=== PATIENT | female | born 1975 | race African-American/Black ===

== ENCOUNTER 2018-12-23 11:11 | Emergency (ER) | payer OTHER ==
[~2018-12-23] VITALS: Ht 170.2 cm; Wt 78.0 kg
[2018-12-23 11:18] VITALS: BP 143/99
== END 2018-12-23 17:05 | disposition left against medical advice (07) ==
LOC: ER 12:27
DX: R05 Cough (principal); R06.02 Shortness of breath; Z53.21 Procedure and treatment not carried out due to patient leaving prior to being seen by health care provider
CPT/HCPCS: 93005

== ENCOUNTER 2019-02-05 00:24 | Inpatient (IN) | payer MEDICAID, OTHER ==
[2019-02-05] VITALS (40 sets, daily range): BP systolic 117–134; BP diastolic 76–98
[~2019-02-05] VITALS: Ht 167.6 cm; Wt 81.2 kg
[2019-02-05] MEDS ORDERED: MORPHINE SULFATE 4 MG/ML CPJ (NOT FOR IM USE) IV STA (00:28)
[2019-02-05] MEDS ORDERED: ONDANSETRON HCL 4MG/2ML INJ IV STA (00:28)
[2019-02-05] MEDS ORDERED: ETOMIDATE 2MG/ML 10ML VIAL IV ONE (00:30)
[2019-02-05] MEDS ORDERED: VANCOMYCIN 1 G PREMIX 200 ML IV ONE (00:30)
[2019-02-05] MEDS ORDERED: MEROPENEM 1,000 MG in SODIUM CHLORIDE 0.9% 100 ML IV ONE (00:30)
[2019-02-05] MEDS ORDERED: PROPOFOL 10MG/ML 100ML 100 ML IV ONE ×2 (00:30→00:51)
[2019-02-05] MEDS ORDERED: SUCCINYLCHOLINE CHLORIDE 200MG/10ML IV ONE (00:30)
[2019-02-05] MEDS ORDERED: ONDANSETRON HCL 4MG/2ML INJ ONE (00:36)
[2019-02-05] MEDS ORDERED: SODIUM CHLORIDE 0.9% 1000ML BAG (SEPSIS BOLUS) IV ONE (00:45)
[2019-02-05 01:08] LABS: BG BASE EXCESS -4.2 mmol/L (-2.0-2.0); BG CARBOXYHEMOGLOBIN 0.2 % (0.5-1.5); BG DEOXYHEMOGLOBIN 5.5 % (0.0-5.0); BG FRACTION INSPIRED OXYGEN 60; BG HCO3 ACT 22.1 mmol/L (22.0-26.0); BG METHEMOGLOBIN 0.4 % (0.0-1.5); BG OXYGEN SATURATION 94.5 % (92.0-98.5); BG OXYHEMOGLOBIN 93.9 % (94.0-97.0); BG PCO2 45.2 mmHg (35.0-45.0); BG PH 7.307 (7.350-7.450); BG PO2 85.6 mmHg (75.0-100.0); BG SAMPLE SITE RIGHT BRACHIAL; BG TIDAL VOLUME(mL) 500 mL; BG VENT MODE VENT - A/C; BG VENT RATE 14 set
[2019-02-05 01:17] LABS: BASOPHILS % 0.3 % (0.0-2.0); EOSINOPHILS % 0.3 % (0.0-5.0); HEMATOCRIT. 36.4 % (36.0-48.0); HEMOGLOBIN. 11.9 g/dL (12.0-16.0); LYMPHOCYTES % 20.9 % (20.0-50.0); MEAN CORPUSCULAR HEMOGLOBIN 28.8 pg (28.0-32.0); MEAN CORPUSCULAR VOLUME 88.2 fL (81.0-99.0); MEAN PLATELET VOLUME 8.5 fl (7.4-10.4); MONOCYTES % 5.3 % (2.0-8.0); NEUTROPHILS % 73.2 % (40.0-76.0); PLATELET 325 x1000/uL (130-400); RED BLOOD CELL COUNT 4.13 mill/uL (4.2-5.4); RED CELL DISTRIBUTION WIDTH 13.7 % (11.6-14.6)
[2019-02-05 01:21] LABS: PROTHROMBIN TIME 10.3 sec (9.1-11.1)
[2019-02-05 01:26] LABS: CHLORIDE 111 mEq/L (98-107)
[2019-02-05] MEDS ORDERED: MIDAZOLAM HCL 50 MG in DEXTROSE 5% WATER 40 ML IV ONE (02:00)
[2019-02-05] MEDS ORDERED: MIDAZOLAM HCL 2 MG/2 ML VIAL IV ONE (02:00)
[2019-02-05 02:26] LABS: CLARITY URINE CLOUDY (CLEAR); COLOR URINE YELLOW (YELLOW); KETONES URINE TRACE (NEGATIVE); LEUKOCYTE ESTERASE URINE NEGATIVE (NEGATIVE); NITRITE URINE NEGATIVE (NEGATIVE); OCCULT BLOOD URINE NEGATIVE (NEGATIVE); PROTEIN URINE 2+ (NEGATIVE); SPECIFIC GRAVITY URINE 1.017 (1.005-1.030)
[2019-02-05] MEDS ORDERED: LEVOFLOXACIN 750MG PREMIX 150 ML IV ONE (02:30)
[2019-02-05 02:37] LABS: *BARBITURATES SCREEN URINE NEGATIVE (NEGATIVE); *BENZODIAZEPINES SCREEN URINE NEGATIVE (NEGATIVE); *COCAINE SCREEN URINE NEGATIVE (NEGATIVE)
[2019-02-05 02:38] LABS: CANNABINOID URINE SCREEN NEGATIVE (NEGATIVE); METHADONE URINE SCREEN NEGATIVE (NEGATIVE); PHENCYCLIDINE URINE SCREEN NEGATIVE (NEGATIVE)
[2019-02-05] MEDS ORDERED: FENTANYL CITRATE/PF 500 MCG in SODIUM CHLORIDE 0.9% 40 ML IV STA (02:53)
[2019-02-05] MEDS: MIDAZOLAM HCL 50 MG in DEXTROSE 5% WATER 40 ML IV PRN ×2 (02:59→04:41)
[2019-02-05] MEDS ORDERED: FENTANYL CITRATE/PF 500 MCG in SODIUM CHLORIDE 0.9% 40 ML IV PRN ×2 (03:00→11:00)
[2019-02-05 03:45] LABS: *AMPHETAMINES SCREEN URINE PRESUMTIVE POSITIVE (NEGATIVE); OPIATES URINE SCREEN PRESUMTIVE POSITIVE (NEGATIVE)
[2019-02-05] MEDS ORDERED: DEXT 5%/0.45% NACL 1000ML 1,000 ML IV SCH (08:05)
[2019-02-05] MEDS ORDERED: IPRATROPIUM/ALBUTEROL 0.5-3(2.5)MG/3ML NEB INH PRN (08:15)
[2019-02-05] MEDS ORDERED: ONDANSETRON HCL 4MG/2ML INJ IV PRN (08:15)
[2019-02-05] MEDS ORDERED: MAGNESIUM/ALUMINUM HYDROXIDE/SIMETHICONE 30ML UDC PO PRN (08:15)
[2019-02-05] MEDS ORDERED: CLONIDINE 0.1MG TABLET PO PRN (08:15)
[2019-02-05] MEDS ORDERED: DOCUSATE SODIUM 100MG CAPSULE PO PRN (08:15)
[2019-02-05] MEDS ORDERED: HYDRALAZINE 20MG/ML VIAL IV PRN (08:15)
[2019-02-05] MEDS ORDERED: DIPHENHYDRAMINE 50MG/ML VIAL IV PRN (08:15)
[2019-02-05] MEDS ORDERED: NOREPINEPHRINE 32 MG in DEXT 5% WATER 468 ML IV PRN ×2 (11:00→11:45)
[2019-02-05] MEDS: IPRATROPIUM/ALBUTEROL 0.5-3(2.5)MG/3ML NEB HHN SCH ×3 (11:45→20:56)
[2019-02-05] MEDS: PROPOFOL 10MG/ML 100ML 100 ML IV PRN ×2 (11:50→19:52)
[2019-02-05] MEDS: DEXT 5%/0.45% NACL 1000ML 1,000 ML IV SCH (11:51)
[2019-02-05] MEDS: ASPIRIN 81MG EC TABLET PO SCH (12:05)
[2019-02-05] MEDS: PANTOPRAZOLE SODIUM 40 MG/VIAL IV SCH (12:05)
[2019-02-05] MEDS: ENOXAPARIN 40MG/0.4ML SYR SUBCUT SCH (12:09)
[2019-02-05] MEDS ORDERED: LIDOCAINE HCL 1% 20ML VIAL (Pyxis) INJ ONE (12:53)
[2019-02-05] MEDS: VANCOMYCIN 750 MG PREMIX 150 ML IV SCH (13:32)
[2019-02-05] MEDS: METRONIDAZOLE 500 MG PREMIX 100 ML IV SCH ×2 (13:32→21:55)
[2019-02-05] MEDS: SODIUM CHLORIDE 0.9% INJ 3ML FLUSH IVF SCH ×2 (14:00→21:55)
[2019-02-05] MEDS: FENTANYL CITRATE/PF 500 MCG in SODIUM CHLORIDE 0.9% 40 ML IV PRN (16:50)
[2019-02-05 18:33] LABS: CREATINE KINASE MB FRACTION 3.2 ng/mL (0.5-3.6)
[2019-02-05 18:41] LABS: HCG SCREEN NEGATIVE
[2019-02-05 19:01] LABS: HEPATITIS B SURFACE ANTIGEN NEGATIVE
[2019-02-05 19:31] LABS: HEPATITIS A AB IGM NEGATIVE (NEGATIVE)
[2019-02-06] VITALS (62 sets, daily range): BP systolic 114–142; BP diastolic 35–100
[2019-02-06] MEDS: IPRATROPIUM/ALBUTEROL 0.5-3(2.5)MG/3ML NEB HHN SCH ×7 (00:15→23:41)
[2019-02-06] MEDS: PROPOFOL 10MG/ML 100ML 100 ML IV PRN ×2 (00:41→05:21)
[2019-02-06] MEDS: VANCOMYCIN 750 MG PREMIX 150 ML IV SCH ×2 (01:43→12:44)
[2019-02-06 02:00] LABS: CREATINE KINASE MB FRACTION 2.5 ng/mL (0.5-3.6)
[2019-02-06] MEDS: DEXT 5%/0.45% NACL 1000ML 1,000 ML IV SCH ×2 (03:06→18:03)
[2019-02-06] MEDS: FENTANYL CITRATE/PF 500 MCG in SODIUM CHLORIDE 0.9% 40 ML IV PRN (03:13)
[2019-02-06] MEDS ORDERED: LEVOFLOXACIN 500MG PREMIX 100 ML IV SCH (04:00)
[2019-02-06 06:16] LABS: BASOPHILS % 0.5 % (0.0-2.0); EOSINOPHILS % 3.6 % (0.0-5.0); HEMATOCRIT. 30.3 % (36.0-48.0); HEMOGLOBIN. 10.1 g/dL (12.0-16.0); LYMPHOCYTES % 31.1 % (20.0-50.0); MEAN CORPUSCULAR HEMOGLOBIN 29.3 pg (28.0-32.0); MEAN CORPUSCULAR VOLUME 87.7 fL (81.0-99.0); MEAN PLATELET VOLUME 8.7 fl (7.4-10.4); MONOCYTES % 9.1 % (2.0-8.0); NEUTROPHILS % 55.7 % (40.0-76.0); PLATELET 211 x1000/uL (130-400); RED BLOOD CELL COUNT 3.46 mill/uL (4.2-5.4); RED CELL DISTRIBUTION WIDTH 13.8 % (11.6-14.6)
[2019-02-06 06:21] LABS: CHLORIDE 114 mEq/L (98-107)
[2019-02-06 06:31] LABS: LDL CHOLESTEROL 66 mg/dL (5-100)
[2019-02-06 06:32] LABS: HDL CHOLESTEROL 48 mg/dL (40-59)
[2019-02-06 06:33] LABS: T4 FREE 1.19 ng/dL (0.76-1.46)
[2019-02-06 08:41] LABS: BG BASE EXCESS -1.1 mmol/L (-2.0-2.0); BG DEOXYHEMOGLOBIN 2.9 % (0.0-5.0); BG FRACTION INSPIRED OXYGEN 50; BG HCO3 ACT 23.1 mmol/L (22.0-26.0); BG METHEMOGLOBIN 1.2 % (0.0-1.5); BG OXYGEN SATURATION 97.1 % (92.0-98.5); BG OXYHEMOGLOBIN 95.9 % (94.0-97.0); BG PCO2 36.7 mmHg (35.0-45.0); BG PH 7.416 (7.350-7.450); BG PO2 101.3 mmHg (75.0-100.0); BG SAMPLE SITE RIGHT BRACHIAL; BG TOTAL HEMOGLOBIN 11.5 g/dL (12.0-18.0); BG VENT MODE MASK - VENTI
[2019-02-06] MEDS: ASPIRIN 81MG EC TABLET PO SCH (09:00)
[2019-02-06] MEDS: PANTOPRAZOLE SODIUM 40 MG/VIAL IV SCH (09:11)
[2019-02-06] MEDS: ENOXAPARIN 40MG/0.4ML SYR SUBCUT SCH (12:45)
[2019-02-06] MEDS: LORAZEPAM 2MG/ML CPJ IV PRN ×3 (12:45→23:46)
[2019-02-06] MEDS: SODIUM CHLORIDE 0.9% INJ 3ML FLUSH IVF SCH ×2 (14:00→21:52)
[2019-02-06] MEDS: METRONIDAZOLE 500 MG PREMIX 100 ML IV SCH ×2 (18:04→21:37)
[2019-02-06] MEDS: ACETAMINOPHEN 325MG TABLET PO PRN (20:01)
[2019-02-06] MEDS: VANCOMYCIN 1 G PREMIX 200 ML IV SCH (21:45)
[2019-02-07] VITALS (26 sets, daily range): BP systolic 111–150; BP diastolic 64–97
[2019-02-07] MEDS: HYDROMORPHONE HCL/PF 2MG/ML CPJ IV PRN ×3 (01:21→20:14)
[2019-02-07] MEDS: LEVOFLOXACIN 500MG PREMIX 100 ML IV SCH (02:08)
[2019-02-07] MEDS: IPRATROPIUM/ALBUTEROL 0.5-3(2.5)MG/3ML NEB HHN SCH ×5 (04:17→20:41)
[2019-02-07] MEDS: SODIUM CHLORIDE 0.9% INJ 3ML FLUSH IVF SCH ×3 (05:43→21:53)
[2019-02-07] MEDS: METRONIDAZOLE 500 MG PREMIX 100 ML IV SCH ×3 (06:15→21:31)
[2019-02-07 08:10] LABS: HEMATOCRIT 29.2 % (36.0-48.0); HEMOGLOBIN 9.7 g/dL (12.0-16.0); MEAN CORPUSCULAR HEMOGLOBIN 29.1 pg (28.0-32.0); MEAN CORPUSCULAR VOLUME 87.9 fL (81.0-99.0); PLATELET 201 x1000/uL (130-400); RED BLOOD CELL COUNT 3.33 mill/uL (4.2-5.4); RED CELL DISTRIBUTION WIDTH 13.5 % (11.6-14.6)
[2019-02-07 08:13] LABS: CHLORIDE 113 mEq/L (98-107)
[2019-02-07] MEDS ORDERED: POTASSIUM CHLORIDE 20MEQ TABLET SR PO SCH (09:15)
[2019-02-07] MEDS: PANTOPRAZOLE SODIUM 40 MG/VIAL IV SCH (09:25)
[2019-02-07] MEDS: VANCOMYCIN 1 G PREMIX 200 ML IV SCH ×3 (09:25→23:59)
[2019-02-07] MEDS: DEXT 5%/0.45% NACL 1000ML 1,000 ML IV SCH (09:25)
[2019-02-07] MEDS: ASPIRIN 81MG EC TABLET PO SCH (12:10)
[2019-02-07] MEDS: ENOXAPARIN 40MG/0.4ML SYR SUBCUT SCH (12:11)
[2019-02-07] MEDS ORDERED: POTASSIUM CHLORIDE 20MEQ/PACKET PO SCH (12:15)
[2019-02-07] MEDS ORDERED: THROAT LOZENGES-BENZOCAINE/MENTH/CETYLPYRD CL LOZENGES MM PRN (12:15)
[2019-02-07 13:06] LABS: HIV SCREEN 4G Non Reactive (Non Reactive)
[2019-02-07] MEDS ORDERED: MAGNESIUM 2 G PREMIX 50 ML IV SCH (15:00)
[2019-02-08] VITALS: BP 123/71
[2019-02-08] MEDS: IPRATROPIUM/ALBUTEROL 0.5-3(2.5)MG/3ML NEB HHN SCH ×6 (00:21→20:16)
[2019-02-08] MEDS: ACETAMINOPHEN 325MG TABLET PO PRN (01:15)
[2019-02-08] MEDS: LEVOFLOXACIN 500MG PREMIX 100 ML IV SCH (03:19)
[2019-02-08] MEDS: HYDROMORPHONE HCL/PF 2MG/ML CPJ IV PRN ×2 (03:29→15:21)
[2019-02-08 04:00] VITALS: BP 113/66
[2019-02-08] MEDS: METRONIDAZOLE 500 MG PREMIX 100 ML IV SCH ×3 (05:33→22:02)
[2019-02-08] MEDS: SODIUM CHLORIDE 0.9% INJ 3ML FLUSH IVF SCH ×3 (05:33→22:02)
[2019-02-08] MEDS: VANCOMYCIN 1 G PREMIX 200 ML IV SCH ×3 (06:31→23:33)
[2019-02-08 06:37] LABS: BASOPHILS % 0.3 % (0.0-2.0); EOSINOPHILS % 3.6 % (0.0-5.0); HEMATOCRIT. 30.1 % (36.0-48.0); HEMOGLOBIN. 9.9 g/dL (12.0-16.0); LYMPHOCYTES % 19.4 % (20.0-50.0); MEAN PLATELET VOLUME 8.5 fl (7.4-10.4); MONOCYTES % 10.5 % (2.0-8.0); NEUTROPHILS % 66.2 % (40.0-76.0); PLATELET 223 x1000/uL (130-400); RED BLOOD CELL COUNT 3.42 mill/uL (4.2-5.4); RED CELL DISTRIBUTION WIDTH 13.7 % (11.6-14.6)
[2019-02-08 07:09] LABS: CHLORIDE 111 mEq/L (98-107)
[2019-02-08 07:20] LABS: VANCOMYCIN TROUGH 22.7 ug/mL (5.0-10.0)
[2019-02-08 08:00] VITALS: BP 119/82
[2019-02-08] MEDS: PANTOPRAZOLE SODIUM 40 MG/VIAL IV SCH (08:32)
[2019-02-08] MEDS: ASPIRIN 81MG EC TABLET PO SCH (08:32)
[2019-02-08 12:06] VITALS: BP 121/86
[2019-02-08] MEDS: ENOXAPARIN 40MG/0.4ML SYR SUBCUT SCH (13:14)
[2019-02-08 16:21] VITALS: BP 121/79
[2019-02-08] MEDS: LORAZEPAM 2MG/ML CPJ IV PRN (19:46)
[2019-02-08 20:00] VITALS: BP 117/87
[2019-02-09] VITALS (7 sets, daily range): BP systolic 120–142; BP diastolic 65–102
[2019-02-09] MEDS: IPRATROPIUM/ALBUTEROL 0.5-3(2.5)MG/3ML NEB HHN SCH ×6 (01:41→23:58)
[2019-02-09] MEDS: LEVOFLOXACIN 500MG PREMIX 100 ML IV SCH (02:26)
[2019-02-09] MEDS: LORAZEPAM 2MG/ML CPJ IV PRN ×5 (02:28→23:31)
[2019-02-09] MEDS: SODIUM CHLORIDE 0.9% INJ 3ML FLUSH IVF SCH ×3 (05:35→22:01)
[2019-02-09] MEDS: METRONIDAZOLE 500 MG PREMIX 100 ML IV SCH ×3 (05:35→21:05)
[2019-02-09] MEDS: VANCOMYCIN 1 G PREMIX 200 ML IV SCH ×3 (06:48→22:02)
[2019-02-09 09:23] LABS: CHLORIDE 112 mEq/L (98-107)
[2019-02-09] MEDS: FAMOTIDINE 20MG/2ML VIAL IV SCH ×2 (09:39→21:05)
[2019-02-09] MEDS: ASPIRIN 81MG EC TABLET PO SCH (09:39)
[2019-02-09] MEDS: DEXT 5%/0.45% NACL 1000ML 1,000 ML IV SCH ×3 (09:40→22:10)
[2019-02-09] MEDS: ENOXAPARIN 40MG/0.4ML SYR SUBCUT SCH (11:51)
[2019-02-09] MEDS: HYDROCODONE/ACETAMINOPHEN 10/325MG TABLET PO PRN ×2 (13:33→17:47)
[2019-02-10] VITALS (7 sets, daily range): BP systolic 119–144; BP diastolic 61–96
[2019-02-10] MEDS: LEVOFLOXACIN 500MG PREMIX 100 ML IV SCH (01:25)
[2019-02-10] MEDS: GUAIFENESIN 200MG/10ML SUGAR FREE UDC PO PRN ×4 (02:04→20:11)
[2019-02-10] MEDS: HYDROCODONE/ACETAMINOPHEN 10/325MG TABLET PO PRN ×3 (02:47→20:11)
[2019-02-10] MEDS: IPRATROPIUM/ALBUTEROL 0.5-3(2.5)MG/3ML NEB HHN SCH ×5 (03:51→21:46)
[2019-02-10] MEDS: SODIUM CHLORIDE 0.9% INJ 3ML FLUSH IVF SCH ×3 (05:21→21:58)
[2019-02-10] MEDS: METRONIDAZOLE 500 MG PREMIX 100 ML IV SCH ×3 (05:21→21:57)
[2019-02-10] MEDS: VANCOMYCIN 1 G PREMIX 200 ML IV SCH ×3 (06:00→23:40)
[2019-02-10] MEDS: FAMOTIDINE 20MG/2ML VIAL IV SCH ×2 (09:29→20:11)
[2019-02-10] MEDS: ASPIRIN 81MG EC TABLET PO SCH (09:29)
[2019-02-10] MEDS: LORAZEPAM 2MG/ML CPJ IV PRN ×2 (12:03→21:58)
[2019-02-10] MEDS: ENOXAPARIN 40MG/0.4ML SYR SUBCUT SCH (12:12)
[2019-02-10] MEDS ORDERED: FUROSEMIDE 40MG/4ML VIAL IVP NR (15:18)
[2019-02-11] VITALS: BP 104/61
[2019-02-11] MEDS: IPRATROPIUM/ALBUTEROL 0.5-3(2.5)MG/3ML NEB HHN SCH ×4 (01:00→12:24)
[2019-02-11] MEDS: LEVOFLOXACIN 500MG PREMIX 100 ML IV SCH (02:14)
[2019-02-11] MEDS: ACETAMINOPHEN 325MG TABLET PO PRN (02:27)
[2019-02-11 04:00] VITALS: BP 113/79
[2019-02-11] MEDS: HYDROCODONE/ACETAMINOPHEN 10/325MG TABLET PO PRN ×2 (04:28→09:02)
[2019-02-11] MEDS: METRONIDAZOLE 500 MG PREMIX 100 ML IV SCH (05:59)
[2019-02-11] MEDS: SODIUM CHLORIDE 0.9% INJ 3ML FLUSH IVF SCH (05:59)
[2019-02-11 07:19] LABS: CHLORIDE 110 mEq/L (98-107)
[2019-02-11 07:35] LABS: VANCOMYCIN TROUGH 20.3 ug/mL (5.0-10.0)
[2019-02-11 08:00] VITALS: BP 115/74
[2019-02-11] MEDS: VANCOMYCIN 1 G PREMIX 200 ML IV SCH (09:01)
[2019-02-11] MEDS: ASPIRIN 81MG EC TABLET PO SCH (09:01)
[2019-02-11] MEDS: FAMOTIDINE 20MG/2ML VIAL IV SCH (09:02)
[2019-02-11 12:00] VITALS: BP_SYST 113; BP_DIAS 74; BP_DIAS 76
[2019-02-11] MEDS: ENOXAPARIN 40MG/0.4ML SYR SUBCUT SCH (12:42)
[2019-02-11 13:31] VITALS: BP 113/74
== END 2019-02-11 14:55 | disposition home or self-care (01) | DRG 720 ==
LOC: ER 00:24 → CVICU 02:26 → EDBEDREQTM 02:28 → EDBEDREQ 02:28 → EDBEDREQSVC 02:28 → ENRESERV 10:14 → 8WST 02-07 17:17 → 5WST 02-09 09:03
PROVIDERS: ADMIT Internal Medicine; ATTEND Internal Medicine
PROC: 5A1945Z Respiratory Ventilation, 24-96 Consecutive Hours (ICD-10-PCS; principal; 2019-02-05)
PROC: 5A1935Z Respiratory Ventilation, Less than 24 Consecutive Hours (ICD-10-PCS; 2019-02-05)
PROC: 02HV33Z Insertion of Infusion Device into Superior Vena Cava, Percutaneous Approach (ICD-10-PCS; 2019-02-05)
PROC: B5181ZA Fluoroscopy of Superior Vena Cava using Low Osmolar Contrast, Guidance (ICD-10-PCS; 2019-02-05)
PROC: 0BH17EZ Insertion of Endotracheal Airway into Trachea, Via Natural or Artificial Opening (ICD-10-PCS; 2019-02-05)
DX: A41.9 Sepsis, unspecified organism (principal); J96.00 Acute respiratory failure, unspecified whether with hypoxia or hypercapnia; G93.41 Metabolic encephalopathy; I50.23 Acute on chronic systolic (congestive) heart failure; N17.9 Acute kidney failure, unspecified; I11.0 Hypertensive heart disease with heart failure; E87.0 Hyperosmolality and hypernatremia; E87.6 Hypokalemia; N39.0 Urinary tract infection, site not specified; R04.2 Hemoptysis; F17.200 Nicotine dependence, unspecified, uncomplicated; I25.10 Atherosclerotic heart disease of native coronary artery without angina pectoris; R40.4 Transient alteration of awareness; I42.9 Cardiomyopathy, unspecified; F11.10 Opioid abuse, uncomplicated; J68.0 Bronchitis and pneumonitis due to chemicals, gases, fumes and vapors; T43.621A Poisoning by amphetamines, accidental (unintentional), initial encounter; Y92.89 Other specified places as the place of occurrence of the external cause; Z88.0 Allergy status to penicillin
CPT/HCPCS: 31500; 36415; 36569; 36600; 71045; 71250; 76770; 76937; 78580; 80048; 80061; 80202; 80305; 82375; 82550; 82553; 82805; 82962; 83036; 83605; 83735; 83880; 84145; 84439; 84443; 84484; 84703; 85027; 85379; 86705; 86709; 86803; 86850; 86900; 87070; 87340; 87389; 87804; 92610; 93005; 93306; 93970; 94002; 94003; 94640; 96365; 96366; 99291; C1725; C9113; J0330; J1170; J1650; J1940; J1956; J2060; J2185; J2250; J2405; J2704; J3010; J3370; J3475; J3490; J7030; J7050; J7060; J7620

== ENCOUNTER 2019-04-27 13:26 | Emergency (ER) | payer MEDICAID | END 2019-04-27 14:05 | disposition left against medical advice (07) | LOC: ER 13:26 | DX: Z53.21 Procedure and treatment not carried out due to patient leaving prior to being seen by health care provider (principal) ==

== ENCOUNTER 2019-05-12 07:40 | Day surgery (SDC) | payer MEDICAID ==
[~2019-05-12] VITALS: Ht 170.2 cm; Wt 82.1 kg
[2019-05-12] MEDS ORDERED: COR6 PO (08:44)
[2019-05-12] MEDS ORDERED: ASPI-1158 PO (08:44)
[2019-05-12] MEDS ORDERED: LISI2.5T47 PO (08:44)
[2019-05-12] MEDS ORDERED: ALD2525 PO (08:44)
[2019-05-12] MEDS ORDERED: FURO-152 PO (08:44)
[2019-05-12] MEDS ORDERED: LURA120T PO (08:44)
[2019-05-12 09:07] LABS: HEMATOCRIT 36.6 % (36.0-48.0); HEMOGLOBIN 12.3 g/dL (12.0-16.0); MEAN CORPUSCULAR HEMOGLOBIN 28.7 pg (28.0-32.0); MEAN CORPUSCULAR VOLUME 85.2 fL (81.0-99.0); PLATELET 259 x1000/uL (130-400); RED BLOOD CELL COUNT 4.29 mill/uL (4.2-5.4); RED CELL DISTRIBUTION WIDTH 17.2 % (11.6-14.6)
[2019-05-12] MEDS ORDERED: MIDAZOLAM HCL 2 MG/2 ML VIAL ONE (09:12)
[2019-05-12] MEDS ORDERED: FENTANYL CITRATE/PF 50MCG/ML 2ML VIAL ONE (09:13)
[2019-05-12] MEDS ORDERED: IODIXANOL 320MG/ML 100 ML BOTTLE IV ONE (09:13)
[2019-05-12] MEDS ORDERED: LIDOCAINE HCL 1% 20ML VIAL (Pyxis) INJ ONE (09:14)
[2019-05-12 09:15] LABS: CHLORIDE 108 mEq/L (98-107)
[2019-05-12 09:20] LABS: HCG SCREEN NEGATIVE; PARTIAL THROMBOPLASTIN TIME 25.4 sec (23.4-31.0); PROTHROMBIN TIME 10.1 sec (9.6-11.0)
[2019-05-12] MEDS ORDERED: ACETAMINOPHEN 325MG TABLET PO PRN (10:00)
[2019-05-12] MEDS ORDERED: MORPHINE SULFATE 2 MG/ML CPJ (NOT FOR IM USE) IV PRN (10:00)
[2019-05-12] MEDS ORDERED: ONDANSETRON HCL 4MG/2ML INJ IV PRN (10:00)
[2019-05-12] MEDS ORDERED: NICARDIPINE 100MCG/ML 10ML VIAL (CATH LAB) IV ONE (13:14)
[2019-05-12] MEDS ORDERED: HEPARIN SODIUM 1,000 UNIT/1ML VIAL IV ONE (13:14)
[2019-05-12] MEDS ORDERED: NITROGLYCERIN 50MCG/ML 10ML VIAL (CATH LAB) IV ONE (13:14)
== END 2019-05-12 13:15 | disposition home or self-care (01) ==
LOC: CCL 07:40
PROVIDERS: ATTEND Internal Medicine Cardiovascular Disease
DX: I42.9 Cardiomyopathy, unspecified (principal); I11.0 Hypertensive heart disease with heart failure; I50.40 Unspecified combined systolic (congestive) and diastolic (congestive) heart failure
CPT/HCPCS: 36415; 80048; 84703; 85027; 85610; 85730; 93005; 93458; C1769; C1887; C1893; J1644; J2250; J3010; J3490; Q9967

== ENCOUNTER → 2024-07-31 | Day surgery (SDC) | payer MEDICAID ==
[~2024-07-31] VITALS: Ht 170.2 cm; Wt 82.6 kg
[~2024-07-31] MED LIST: ACETAMINOPHEN 325MG TABLET PO PRN; ASPI-1406 PO; ATOR10TA69 PO; ATROPINE SULFATE 1MG/10ML SYR ONE; CARV3.1242 PO; FENTANYL CITRATE/PF 50MCG/ML 2ML VIAL ONE; FERR325T6 PO; FURO40TA5 PO; HEPARIN 1000 UNITS/ML 10ML ONE; IODIXANOL 320MG/ML 100 ML BOTTLE IV ONE; LEVE750T4 PO; LIDOCAINE HCL/PF 1% 10 MG/ML 5ML VIAL ONE; LISI2.5T47 PO; LURA40TA4 PO; MIDAZOLAM HCL 2 MG/2 ML VIAL ONE; MORPHINE SULFATE 2 MG/ML INJ (NOT FOR IM USE) IV PRN; NALOXONE HCL 0.4MG/ML VIAL IV PRN; ONDANSETRON HCL 4MG/2ML INJ IV PRN; POTA-354 PO; SACU1TAB PO; SODIUM CHLORIDE 0.45% 500 ML IV ONE; VERQUVO PO
[2024-07-31 07:35] LABS: BASOPHILS % 0.8 % (0.0-2.0); EOSINOPHILS % 2.1 % (0.0-5.0); HEMATOCRIT. 40.9 % (36.0-48.0); HEMOGLOBIN. 13.5 g/dL (12.0-16.0); LYMPHOCYTES % 30.3 % (20.0-50.0); MEAN CORPUSCULAR HEMOGLOBIN 27.5 pg (28.0-32.0); MEAN CORPUSCULAR HGB CONC 32.9 g/dL (31.0-37.0); MEAN CORPUSCULAR VOLUME 83.6 fL (81.0-99.0); MEAN PLATELET VOLUME 8.3 fl (7.4-10.4); NEUTROPHILS % 56.8 % (40.0-76.0); PLATELET 246 x1000/uL (130-400); RED CELL DISTRIBUTION WIDTH 20.4 % (11.6-14.6); WHITE BLOOD COUNT 5.6 x1000/uL (4.5-11.0)
[2024-07-31 07:41] LABS: POTASSIUM 4.4 mEq/L (3.5-5.1)
[2024-07-31 07:42] LABS: CALCIUM 9.4 mg/dL (8.7-10.4)
[2024-07-31 07:47] LABS: CREATININE 1.4 mg/dL (0.6-1.0); INR 0.9; PARTIAL THROMBOPLASTIN TIME 25.4 sec (23.4-31.0); PROTHROMBIN TIME 10.3 sec (9.6-11.0)
[2024-07-31 08:12] LABS: UCG KIT LOT# 840181; UCG SCREEN NEGATIVE
[2024-07-31] MEDS: SODIUM CHLORIDE 0.45% 500 ML IV ONE (08:31)
[2024-07-31] MEDS: LEVETIRACETAM 250MG TABLET PO NR (08:32)
== END | disposition home or self-care (01) ==
LOC: CCL 07:06
PROVIDERS: ATTEND Internal Medicine Cardiovascular Disease
DX: I42.9 Cardiomyopathy, unspecified (principal); I47.20 Ventricular tachycardia, unspecified; I25.10 Atherosclerotic heart disease of native coronary artery without angina pectoris; I11.0 Hypertensive heart disease with heart failure; I50.42 Chronic combined systolic (congestive) and diastolic (congestive) heart failure; I63.9 Cerebral infarction, unspecified; F17.210 Nicotine dependence, cigarettes, uncomplicated; Z79.82 Long term (current) use of aspirin; Z79.899 Other long term (current) drug therapy; Z88.1 Allergy status to other antibiotic agents; Z98.890 Other specified postprocedural states
CPT/HCPCS: 93458; 80048; 81025; 85025; 85610; 85730; 36415; 93005; C1893; C1760; C1769 ×2; J3010; Q9967; J0461; J1644 ×2; J3490; J2250; C1887; 99152; 99153; G0500